=== PATIENT | female | born 1955 | race Caucasian/White ===

== ENCOUNTER → 2016-10-14 | Outpatient (CLI) | payer OTHER ==
--- NOTE | 2016-10-14 14:20 | XR ---
EXAMINATION TYPE: XR KUB DATE OF EXAM: 10/14/2016 11:28 AM COMPARISON: NONE HISTORY: 61-year-old female left flank pain, possible stones FINDINGS: Nonobstructive bowel gas pattern. Supine imaging limited for assessment of free air. There is mild st ool burden. No radiographically apparent suspicious calcifications. IMPRESSION: No radiographically apparent suspicious calcifications. Nonobstructive bowel gas pattern.
== END | disposition home or self-care (01) ==
LOC: RADXRMAIN 11:08
PROVIDERS: ATTEND Urology
DX: N20.0 Calculus of kidney (principal)
CPT/HCPCS: 74000

== ENCOUNTER → 2016-10-24 | Outpatient (CLI) | payer OTHER ==
--- NOTE | 2016-10-24 11:57 | CT ---
EXAMINATION TYPE: CT abdomen pelvis wo con DATE OF EXAM: 10/24/2016 9:39 AM COMPARISON: 11/06/2007 INDICATION: Lt flank pain, bladder pain DLP: 983 mGycm, Automated exposure control for dose reduction was used. CONTRAST: None Study performed without Oral Contrast TECHNIQUE: Axial images were obtained from above the diaphragm to the pubic rami in the axial plane a t 5 mm thick sections. Reconstructed images are reviewed on the computer in the coronal plane. FINDINGS: Limited CT sections are obtained the lung bases. The lung bases are clear. CT ABDOMEN: Liver: Tiny subcortical cysts may be at the superior right dome of the diaphragm within the liver. Spleen: Normal Pancreas: Normal Adrenal glands: The adrenal glands are normal. Gallbladder: Normal Kidneys: No masses are evident. Minimal calyceal prominence may be within the right kidney. No obviou s hydronephrosis is evident. There is an oval cyst or 2 adjacent cyst with a transverse dimension of 1.9 cm within the mid left kidney. Couple of tiny punctate calcifications without evidence of obstru ction within the bilateral kidneys. There is a 0.3 cm left mid kidney calcification and a 0.3 cm calc ification at the inferior pole left kidney. No hydroureter is evident. Aorta: Vascular calcification is within the aorta. Inferior vena cava: Normal. CT PELVIS: Loops of bowel within the abdomen and pelvis are normal. Appendix: Not visualized. No suspicious inflammatory changes are evident. Urinary bladder: Normal. Genitourinary structures: Uterus and ovaries are not identified. Osseous structures: No suspicious lytic or sclerotic lesions. COMPARISON: Multiple renal stones present previously have diminished in size and number from the [facility]. Left renal cysts or not identified previously IMPRESSIONS: 1. Nonobstructing bilateral renal stones. 2. Minimal calyceal prominence of the right kidney may be present. No hydronephrosis is evident.
== END | disposition home or self-care (01) ==
LOC: RADCTMAIN 09:07
PROVIDERS: ATTEND Urology
DX: N20.0 Calculus of kidney (principal)
CPT/HCPCS: 74176

== ENCOUNTER → 2016-11-12 | Outpatient (CLI) | payer OTHER ==
--- NOTE | 2016-11-12 12:34 | WWHP ---
DATE OF SERVICE: 11/12/2016 CHIEF COMPLAINT: The patient is here for her routine gynecologic exam. HPI: This is a 61-year-old, G2, P2 with an LMP of 2002. The patient is status post BRUCE and BSO in 2002 for prolapse. The patient is without gynecologic complaints and denies hot flashes. She states it has been about 12 years since her last pelvic exam. PAST MEDICAL HISTORY: Arthritis, borderline hypertension, kidney stones and history of irritable bowel syndrome. MEDICATIONS: 1. Ultram 50 mg q.i.d. 2. Klonopin ( ) mg q.h.s. 3. Ziac p.r.n. ALLERGIES: No known drug allergies. PAST SURGICAL HISTORY: BRUCE, BSO approximately 2002, cystocele repair 2004, multiple lithotripsies in the past, Colonoscopy in her 40s or 50s. PAST OB HISTORY: Two vaginal deliveries. PAST [employer]ETING [employer] HISTORY: She is status post BRUCE, BSO for benign reasons. She has no history of STDs. She did use ERT for about 10 years after her hysterectomy. SOCIAL HISTORY: She denies tobacco, alcohol, and drug use. She has been since 1974. She says that 4 grandchildren live with her. [place] farm. FAMILY HISTORY: Brother had liver cancer. Father had coronary artery disease and an aneurysm. Mother had an IN. Brother had coronary artery disease and the son has SVT. REVIEW OF SYSTEMS: She believes she gained about 15 pounds over the last year. She denies respiratory or cardiac problems. GI: She has occasional IBS symptoms. PHYSICAL EXAM: Blood pressure 133/82. Height 5 feet 5 inches. Weight 212 pounds. Temperature 97.1, pulse 75. This is a well-developed, well-nourished white female who is alert and oriented x3 in no acute distress. HEENT is within normal limits. NECK: Supple without mass or thyromegaly. CHEST AND LUNGS: Clear to auscultation. HEART: Regular rate and rhythm. Breasts are without mass or discharge. Axillary exam is negative for adenopathy. BACK: Negative for CVA tenderness. ABDOMEN: Soft, nontender, without palpable masses. PELVIC EXAM: External genitalia reveals mild to moderate atrophy without lesions. Vagina reveals moderate atrophy without lesions. The vagina is slightly shortened and narrowed consistent with atrophy. There is no evidence of prolapse. Bimanual exam is negative for mass or tenderness. Rectovaginal exam is negative for mass or tenderness and is negative for occult blood. EXTREMITIES: Nontender. IMPRESSION: 1. A 61-year-old menopausal female, status post total abdominal hysterectomy bilateral salpingo-oophorectomy for benign reasons. 2. Moderate genital atrophy. There is some vaginal shortening and narrowing probably related to atrophy and her previous cystocele repair. PLAN: 1. Pap smears have been discontinued. 2. Self breast examination was discussed. 3. Mammogram is due and a slip was given to patient for this. 4. I have recommended screening colonoscopy if it has been more than 10 years. She states she will be checking with her primary care physician to see when her last one was done. 5. Osteoporosis prevention was discussed. 6. We have discussed weight control. I stressed the importance of good nutrition, regular meals, adequate exercise and adequate fiber. 7. She would like a trial of Premarin vaginal cream 1 to 2 grams intravaginally twice weekly. Prescription was given to patient for this. 8. She will return in one year day.
== END | disposition home or self-care (01) ==
LOC: WWCWWP 09:58
PROVIDERS: ATTEND Obstetrics & Gynecology

== ENCOUNTER → 2017-04-04 | Outpatient (CLI) | payer OTHER ==
--- NOTE | 2017-04-07 10:55 | MM ---
Reason for exam: screening (asymptomatic). Last mammogram was performed 2 years ago. History: Patient is postmenopausal. Took estrogen beginning at age 42. Physical Findings: A clinical breast exam by your physician is recommended on an annual basis and results should be correlated with mammographic findings. MG Screening Mammo w CAD Bilateral CC and MLO view(s) were taken. Prior study comparison: April 14, 2015, bilateral MG screening mammo w CAD. November 09, 2008, bilateral digital screening mammogram. There are scattered fibroglandular densities. Finding: There are few typically benign round, diffuse/scattered and grouped calcifications in the right breast. There is a chronic nodularity bilaterally. There is no dominant lesion. ASSESSMENT: Benign, BI-RAD 2 RECOMMENDATION: Routine screening mammogram of both breasts in 1 year.
== END | disposition home or self-care (01) ==
LOC: RADMAMWWP 09:02
PROVIDERS: ATTEND Family Medicine
DX: Z12.31 Encounter for screening mammogram for malignant neoplasm of breast (principal)

== ENCOUNTER → 2018-07-22 | Outpatient (CLI) | payer OTHER ==
--- NOTE | 2018-07-23 10:29 | MM ---
Reason for exam: screening (asymptomatic). Last mammogram was performed 1 year and 4 months ago. History: Patient is postmenopausal. Took estrogen beginning at age 42. Physical Findings: A clinical breast exam by your physician is recommended on an annual basis and results should be correlated with mammographic findings. MG Screening Mammo w CAD Bilateral CC and MLO view(s) were taken. Prior study comparison: April 04, 2017, bilateral MG screening mammo w CAD. April 14, 2015, bilateral MG screening mammo w CAD. The breast tissue is heterogeneously dense. This may lower the sensitivity of mammography. There are benign appearing round vascular calcifications bilaterally. There is chronic nodularity bilaterally. ASSESSMENT: Benign, BI-RAD 2 RECOMMENDATION: Routine screening mammogram of both breasts in 1 year.
== END | disposition home or self-care (01) ==
LOC: RADMAMWWP 10:26
PROVIDERS: ATTEND Family Medicine
DX: Z12.31 Encounter for screening mammogram for malignant neoplasm of breast (principal)
CPT/HCPCS: 77067

== ENCOUNTER → 2021-08-01 | Outpatient (CLI) | payer MEDICARE ==
--- NOTE | 2021-08-02 12:45 | MM ---
Reason for exam: screening (asymptomatic). Last mammogram was performed 3 years ago. History: Patient is postmenopausal. Took estrogen beginning at age 42. Physical Findings: A clinical breast exam by your physician is recommended on an annual basis and results should be correlated with mammographic findings. MG 3D Screening Mammo W/Cad Bilateral CC and MLO view(s) were taken. Prior study comparison: July 22, 2018, bilateral MG screening mammo w CAD. April 04, 2017, bilateral MG screening mammo w CAD. The breast tissue is heterogeneously dense. This may lower the sensitivity of mammography. Stable benign calcifications. There is no discrete abnormality. No significant changes when compared with prior studies. ASSESSMENT: Benign, BI-RAD 2 RECOMMENDATION: Routine screening mammogram of both breasts in 1 year.
== END ==
LOC: RADMAMWWP 15:28
PROVIDERS: ATTEND Family Medicine
DX: Z12.31 Encounter for screening mammogram for malignant neoplasm of breast (principal); R92.1 Mammographic calcification found on diagnostic imaging of breast
CPT/HCPCS: 77063; 77067

== ENCOUNTER → 2024-05-14 | Outpatient (CLI) | payer MEDICARE ==
--- NOTE | 2024-05-18 11:52 | MM ---
Reason for Exam: Screening (asymptomatic). Last mammogram was performed 2 year(s) and 9 month(s) ago. Patient History: Menarche at age 15. First Full-Term at age 21. Left ovary removed at age 44. Right ovary removed at age 44. Hysterectomy at age 44. Postmenopausal. Estrogen for 10 years from age 42 until age 52. Maternal aunt had breast cancer at or over age 50. Risk Values: Sakshi 5 year model risk: 1.4%. NCI Lifetime model risk: 4.6%. Prior Study Comparison: 04/04/2017 Bilateral Screening Mammogram, [facility]. 07/22/2018 Bilateral Screening Mammogram, [facility]. 08/01/2021 Bilateral Screening Mammogram, [facility]. Tissue Density: There are scattered areas of fibroglandular density. Findings: Analyzed By CAD. Right breast: There is no suspicious group of microcalcifications or new suspicious mass. Right axillary MLO view lymph node with more lucent center. Left breast: There is no suspicious group of microcalcifications or new suspicious mass. Overall Assessment: Negative, BI-RAD 1 Management: Screening Mammogram of both breasts in [address] [facility] will attempt to contact patient to return for supplemental views and ultrasound if indicated. Patient should continue monthly self-breast exams. A clinical breast exam by your physician is recommended on an annual basis. This exam should not preclude additional follow-up of suspicious palpable abnormalities. Note on Sakshi scores and lifetime risk: 1. A Sakshi score greater than 3% is considered moderate risk. If this is the case, consider specialist referral to assess eligibility for a risk reducing agent. 2. If overall lifetime risk for the development of breast cancer is 20% or higher, the patient may qualify for future screening with alternating mammogram and breast MRI. Electronically signed and approved by: Patric Barboza DO
== END | disposition home or self-care (01) ==
LOC: RADMAMWWP 08:18
PROVIDERS: ATTEND Family Medicine
DX: Z12.31 Encounter for screening mammogram for malignant neoplasm of breast
CPT/HCPCS: 77063; 77067